=== PATIENT | male | born 1980 | race Caucasian/White ===

== ENCOUNTER 2017-01-12 20:05 | Emergency (ER) | payer OTHER ==
[~2017-01-12] VITALS: Ht 175.3 cm; Wt 110.4 kg
[2017-01-12] MEDS ORDERED: VALIUM5 MG PO (22:51)
[2017-01-12] MEDS ORDERED: NORCO 5/3251 TABLET PO (22:51)
[2017-01-12 23:27] VITALS: BP 138/77
== END 2017-01-12 23:30 | disposition home or self-care (01) ==
LOC: EME 20:05 → RME 20:05
DX: M43.6 Torticollis (principal); F17.200 Nicotine dependence, unspecified, uncomplicated
CPT/HCPCS: 99281; 99284